=== PATIENT | male | born 1945 | race Caucasian/White ===

== ENCOUNTER 2023-01-29 08:14 | Outpatient (CLI) | payer MEDICARE, OTHER | END 2023-01-29 08:15 | disposition home or self-care (01) | LOC: CSHWCC 08:14 | PROVIDERS: ATTEND Nurse Practitioner Family | DX: I70.248 Atherosclerosis of native arteries of left leg with ulceration of other part of lower leg (principal); L97.822 Non-pressure chronic ulcer of other part of left lower leg with fat layer exposed; R60.0 Localized edema | CPT/HCPCS: 11042; 99203; G0463 ==

== ENCOUNTER 2023-02-12 08:03 | Outpatient (CLI) | payer MEDICARE, OTHER | END 2023-02-12 08:04 | disposition home or self-care (01) | LOC: CSHWCC 08:03 | PROVIDERS: ATTEND Nurse Practitioner Family | DX: I70.248 Atherosclerosis of native arteries of left leg with ulceration of other part of lower leg (principal); L97.822 Non-pressure chronic ulcer of other part of left lower leg with fat layer exposed; R60.0 Localized edema | CPT/HCPCS: 99213; G0463 ==